=== PATIENT | female | born 1980 | race Caucasian/White ===

== ENCOUNTER 2016-07-06 14:09 | Emergency (ER) | payer BC ==
[2016-07-06 14:31] VITALS: BP 147/86
--- NOTE | 2016-07-06 14:39 | UC ---
Throat Pain/Nasal Jey HPI - HPI Summary HPI Summary: complaint of sore throat that started 2 days ago hurts to swallow has been having chills for2 days nasal congestion fo 1 day non productive cough occasionally intermittent headache not taking any medications for her symptoms - History of Current Complaint Chief Complaint: UCRespiratory Stated Complaint: SORE THROAT Time Seen by Provider: 07/06/16 14:11 Hx Obtained From: Patient Hx Last Menstrual Period: 06/12/16 - Allergies/Home Medications Allergies/Adverse Reactions: Allergies Allergy/AdvReac Type Severity Reaction Status Date / Time No Known Allergies Allergy Verified 07/06/16 14:22 Home Medications: Home Medications Drospirenone-Ethinyl Estradiol [Gianvi 3-0.02 mg] 1 tab PO DAILY 07/06/16 [ History Confirmed 07/06/16] PMH/Surg Hx/FS Hx/Imm Hx Previously Healthy: Yes - Surgical History Surgical History: Yes Surgery Procedure, Year, and Place: T&A. BREAST REDUCTION - Family History Known Family History: Negative: Cardiac Disease, Hypertension, Diabetes - Social History Occupation: Employed Full-time Lives: With Family Alcohol Use: Rare Substance Use Type: None Smoking Status (MU): Never Smoked Tobacco - Immunization History Most Recent Influenza Vaccination: FALL 2015 Review of Systems Constitutional: Chills, Fatigue Skin: Negative Eyes: Negative ENT: Sore Throat, Nasal Discharge Respiratory: Cough Cardiovascular: Negative Gastrointestinal: Negative Genitourinary: Negative Motor: Negative Neurovascular: Negative Musculoskeletal: Negative Neurological: Headache Psychological: Negative All Other Systems Reviewed And Are Negative: Yes Physical Exam Triage Information Reviewed: Yes Appearance: No Pain Distress, Well-Nourished, Obese Vital Signs: Initial Vital Signs Temp 98.8 F 07/06/16 14:23 Pulse 106 07/06/16 14:23 Resp 20 07/06/16 14:23 BP 147/86 07/06/16 14:23 Pulse Ox 100 07/06/16 14:23 Vital Signs Reviewed: Yes Eyes: Positive: Conjunctiva Clear ENT: Positive: Pharyngeal erythema, Nasal congestion, Nasal drainage, TMs normal Neck: Positive: No Lymphadenopathy Respiratory: Positive: Lungs clear, Normal breath sounds, No respiratory distress, No accessory muscle use Cardiovascular: Positive: No Murmur, Pulses Normal, Tachycardia Abdomen Description: Positive: Nontender, Soft Bowel Sounds: Positive: Present Musculoskeletal: Positive: No Edema Neurological: Positive: Alert Psychological Exam: Normal Skin Exam: Normal Throat Pain/Nasal Course/Dx - Differential Dx/Diagnosis Differential Diagnosis/HQI/PQRI: Pharyngitis, URI Provider Diagnoses: elevated blood pressure, pharyngitis Discharge - Discharge Plan Condition: Stable Disposition: HOME Patient Education Materials: Pharyngitis (ED) Referrals: Precious Moya MD [Medical Doctor] - Additional Instructions: Your blood pressure is elevated. Please contact your primary care provider for further evaluation. PHARYNGITIS (Sore Throat) What is Pharyngitis? The medical name for a sore throat is Pharyngitis. It is caused by an infection or irritation of your throat or tonsils. The infection can be caused by a virus or by bacteria. Not everyone with Pharyngitis needs antibiotics. Antibiotics will not make viral infections better, and they will not help a sore throat caused by irritation. Symptoms May Include: Sore throat Swelling of the glands in the neck Trouble or pain with swallowing Fever Headache Cough Extreme tiredness Ear pain Treatment Recommendations: Gargle every few hours with a solution of 1/4 teaspoon of salt dissolved in 1/ 2 cup of warm water. Drink plenty of warm beverages, like tea with lemon, (with or without honey) and soup. You may eat and drink cold foods and liquids like frozen yogurt, popsicles, and ice water if that makes your throat feel better. The goal is to keep you well hydrated. Use a "cool-mist" vaporizer or humidifier in the room where you spend most of your time. If you get a sore throat often, consider adding an electronic air filter and humidifier to your furnace system. Don't smoke. Do not eat spicy foods. Take medicine exactly as prescribed. If you do not think it is helping, call your healthcare provider. Do not increase how much or how often you take it without getting their OK first. Non-prescription anti-inflammatory medicine like ibuprofen (Motrin, Advil) or naproxen (Aleve) may help lessen the pain. You should not take these medicines if you have had bleeding in your stomach in the past. Acetaminophen ( Tylenol) is another choice of medicine that may help the pain. If pain medicine that makes you tired or sleepy or contains narcotics is prescribed, you should not drink, drive, or participate in any other activities that you need to be clear-headed for. Please keep all medicines out of the reach of children. Do not get in close contact with anyone you know who has a sore throat. Use throat lozenges (Cepostat, [place], etc.) or suck on hard candy for temporary relief of the pain with swallowing. (Do not give to children under age 5.) Call Your Doctor or Return Here IF: Your symptoms do not start to get better within 2 days or you become worse. You have a fever over 101.0 F orally. You cant swallow liquids or saliva. You are drooling. You start to have trouble breathing. You start to have a rash. You start to have a stiff neck. You start to have pain in your chest. You start to have any symptoms that are new or worry you.
== END 2016-07-06 15:11 | disposition home or self-care (01) ==
LOC: UCCORT 14:09
DX: J02.9 Acute pharyngitis, unspecified (principal); R03.0 Elevated blood-pressure reading, without diagnosis of hypertension; E66.9 Obesity, unspecified
CPT/HCPCS: 87651; 99201; G0463

== ENCOUNTER 2016-08-03 20:50 | Emergency (ER) | payer BC ==
[2016-08-03 21:12] VITALS: BP 141/75
[2016-08-03] MEDS ORDERED: Penicillin VK TAB* 250 MG PO ONE (21:28)
[2016-08-03] MEDS ORDERED: Acetaminop/Codeine 30 MG TAB* 1 TAB (300 MG/30 MG) PO ONE (21:28)
--- NOTE | 2016-08-03 21:35 | UC ---
Dental HPI - HPI Summary HPI Summary: Irritation under tongue on R side progressed to pain around tooth #29 starting 2 days ago. Woke at 4am this morning with significant pain. Doesn't have dental insurance, is trying to find someone who will take payment plan. - History of Current Complaint Chief Complaint: UCDentalProblem Stated Complaint: DENTAL Time Seen by Provider: 08/03/16 21:17 Hx Obtained From: Patient Hx Last Menstrual Period: 07/16/16 ?: No Onset/Duration: Gradual Onset, Lasting Days Severity: Moderate Aggravating: Chewing Alleviating: Nothing - Allergies/Home Medications Allergies/Adverse Reactions: Allergies Allergy/AdvReac Type Severity Reaction Status Date / Time No Known Allergies Allergy Verified 08/03/16 21:11 Home Medications: Home Medications Ibuprofen TAB* [Motrin TAB* 600 MG] 600 mg PO Q8H PRN 08/03/16 [History Confirmed 08/03/16] PMH/Surg Hx/FS Hx/Imm Hx - Surgical History Surgical History: Yes Surgery Procedure, Year, and Place: T&A. BREAST REDUCTION - Family History Known Family History: Negative: Cardiac Disease, Hypertension, Diabetes - Social History Occupation: Employed Full-time Lives: With Family Alcohol Use: Rare Substance Use Type: None Smoking Status (MU): Never Smoked Tobacco - Immunization History Most Recent Influenza Vaccination: FALL 2015 Review of Systems Constitutional: Negative Skin: Negative Eyes: Negative ENT: Dental Pain Respiratory: Negative Cardiovascular: Negative Gastrointestinal: Negative Genitourinary: Negative Motor: Negative Neurovascular: Negative Musculoskeletal: Negative Neurological: Negative Psychological: Negative All Other Systems Reviewed And Are Negative: Yes Physical Exam Triage Information Reviewed: Yes Appearance: Well-Appearing, No Pain Distress, Obese Vital Signs: Initial Vital Signs Temp 98.7 F 08/03/16 21:07 Pulse 93 08/03/16 21:07 Resp 14 08/03/16 21:07 BP 141/75 08/03/16 21:07 Pulse Ox 100 08/03/16 21:07 Vital Signs Reviewed: Yes Eye Exam: Normal Eyes: Positive: Conjunctiva Clear ENT Exam: Normal ENT: Positive: Normal ENT inspection, Hearing grossly normal, Pharynx normal, TMs normal. Negative: Tonsillar swelling, Tonsillar exudate Dental: Positive: Percussion Tenderness @ - peiodontal tissue around #29, Gross Decay/Caries @ - poor hygeine, marked plaque build-up Neck exam: Normal Neck: Positive: Supple, Nontender Respiratory Exam: Normal Respiratory: Positive: Chest non-tender, Lungs clear, Normal breath sounds, No respiratory distress, No accessory muscle use Cardiovascular Exam: Normal Cardiovascular: Positive: RRR, No Murmur Musculoskeletal Exam: Normal Neurological Exam: Normal Neurological: Positive: Alert Psychological Exam: Normal Skin Exam: Normal Dental Complaint Course/Dx - Differential Dx/Diagnosis Provider Diagnoses: periodontal infection #29 Discharge - Discharge Plan Condition: Stable Disposition: HOME Prescriptions: Penicillin VK TAB 500 MG(NF) [Penicillin VK 500 mg Tab(NF)] 500 mg PO QID #28 tab Patient Education Materials: Toothache (ED) Referrals: Non Staff,Doctor [Primary Care Provider] - Additional Instructions: As we discussed, your pain appears to be coming from your gum tissue rather than your teeth. Regardless, you certainly should see a dentist as soon as possible.
== END 2016-08-03 21:55 | disposition home or self-care (01) ==
LOC: UCCORT 20:50
DX: K05.20 Aggressive periodontitis, unspecified (principal); E66.9 Obesity, unspecified
CPT/HCPCS: 99212; A9270-GY; G0463

== ENCOUNTER 2017-03-25 18:01 | Emergency (ER) | payer BC ==
[2017-03-25 18:27] VITALS: BP 141/82
--- NOTE | 2017-03-25 18:50 | UC ---
Throat Pain/Nasal Jey HPI - HPI Summary HPI Summary: TWO MONTHS OF WORSENING COUGH AND WORSENING SINUS CONGESTION. - History of Current Complaint Chief Complaint: UCRespiratory Stated Complaint: COUGH Time Seen by Provider: 03/25/17 18:30 Hx Obtained From: Patient, Family/Director Employee Communications Hx Last Menstrual Period: 03/20/17 Onset/Duration: Gradual Onset, Lasting Weeks Severity: Moderate Cough: Productive Associated Signs & Symptoms: Positive: Hoarseness, Sinus Discomfort, Nasal Discharge - Epiglottits Risk Factors Epiglottis Risk Factors: Negative - Allergies/Home Medications Allergies/Adverse Reactions: Allergies Allergy/AdvReac Type Severity Reaction Status Date / Time No Known Allergies Allergy Verified 03/25/17 18:27 PMH/Surg Hx/FS Hx/Imm Hx Previously Healthy: Yes - Surgical History Surgical History: Yes Surgery Procedure, Year, and Place: T&A. BREAST REDUCTION - Family History Known Family History: Negative: Cardiac Disease, Hypertension, Diabetes - Social History Occupation: Employed Full-time Lives: With Family Alcohol Use: Rare Substance Use Type: None Smoking Status (MU): Never Smoked Tobacco - Immunization History Most Recent Influenza Vaccination: FALL 2015 Review of Systems Constitutional: Negative Skin: Negative Eyes: Negative ENT: Nasal Discharge, Sinus Congestion, Sinus Pain/Tenderness Respiratory: Cough Cardiovascular: Negative Gastrointestinal: Negative Genitourinary: Negative Motor: Negative Neurovascular: Negative Musculoskeletal: Negative Neurological: Negative Psychological: Negative Is Patient Immunocompromised?: No All Other Systems Reviewed And Are Negative: Yes Physical Exam Triage Information Reviewed: Yes Appearance: No Pain Distress, Well-Nourished, Ill-Appearing - MILDLY Vital Signs: Initial Vital Signs Temp 98.3 F 03/25/17 18:20 Pulse 107 03/25/17 18:20 Resp 14 03/25/17 18:20 BP 141/82 03/25/17 18:20 Pulse Ox 100 03/25/17 18:20 Vital Signs Reviewed: Yes Eye Exam: Normal ENT Exam: Normal ENT: Positive: Pharynx normal, Nasal congestion, TM bulging, TM dull Dental Exam: Normal Neck exam: Normal Neck: Positive: Supple, Nontender, No Lymphadenopathy Respiratory Exam: Other - COUGH Respiratory: Positive: Chest non-tender, Lungs clear, Normal breath sounds, No respiratory distress, No accessory muscle use Cardiovascular Exam: Normal Cardiovascular: Positive: RRR, No Murmur, Pulses Normal, Brisk Capillary Refill Abdominal Exam: Normal Musculoskeletal Exam: Normal Musculoskeletal: Positive: Strength Intact, ROM Intact, No Edema Neurological Exam: Normal Psychological Exam: Normal Skin Exam: Normal Throat Pain/Nasal Course/Dx - Differential Dx/Diagnosis Differential Diagnosis/HQI/PQRI: Sinusitis, Tonsillitis, URI Provider Diagnoses: SINUSITIS; BRONCHITIS Discharge - Discharge Plan Condition: Stable Disposition: HOME Prescriptions: Amoxicillin/Clavulanate TAB* [Augmentin TAB 875*] 875 mg PO BID #20 tab Benzonatate CAP* [Tessalon 100 MG CAP*] 100 mg PO TID PRN #15 cap PRN Reason: Cough Patient Education Materials: Sinusitis (ED), Acute Bronchitis (ED) Referrals: Non Staff,Doctor [Primary Care Provider] -
== END 2017-03-25 18:46 | disposition home or self-care (01) ==
LOC: UCCORT 18:01
DX: J32.9 Chronic sinusitis, unspecified (principal); J40 Bronchitis, not specified as acute or chronic
CPT/HCPCS: 99212; G0463

== ENCOUNTER 2018-10-10 11:13 | Emergency (ER) | payer BC ==
[2018-10-10 11:43] VITALS: BP 143/87
--- NOTE | 2018-10-10 11:59 | UC ---
Skin Complaint HPI - HPI Summary HPI Summary: tick bite left lower leg x 2 days her removed the tick for her, tick was very small, not sure how long it has been on her no fever, no chills, no joint pain , no rash - History of Current Complaint Chief Complaint: UCSkin Time Seen by Provider: 10/10/18 11:47 Stated Complaint: TICK BITE Hx Obtained From: Patient Hx Last Menstrual Period: 10/03/18 Onset/Duration: Gradual Onset, Lasting Days - 2, Still Present Timing: Constant Onset Severity: Mild Current Severity: Mild Pain Intensity: 0 Location: Discrete - left lower leg Character: Redness Aggravating Factor(s): Nothing Alleviating Factor(s): Nothing Associated Signs & Symptoms: Positive: Negative. Negative: Nausea, Vomiting, Numbness, Fever, Chills, Cough, Wheezing, Tenderness Related History: Insect Bite/Sting - Allergy/Home Medications Allergies/Adverse Reactions: Allergies Allergy/AdvReac Type Severity Reaction Status Date / Time No Known Allergies Allergy Verified 10/10/18 11:43 Home Medications: Home Medications Ibuprofen 600 mg PO ONCE PRN 10/10/18 [History Confirmed 10/10/18] PMH/Surg Hx/FS Hx/Imm Hx Previously Healthy: Yes - Surgical History Surgical History: Yes Surgery Procedure, Year, and Place: T&A. BREAST REDUCTION - Family History Known Family History: Negative: Cardiac Disease, Hypertension, Diabetes - Social History Alcohol Use: Rare Substance Use Type: None Smoking Status (MU): Never Smoked Tobacco - Immunization History Most Recent Influenza Vaccination: FALL 2015 Review of Systems All Other Systems Reviewed And Are Negative: Yes Constitutional: Positive: Negative Eyes: Positive: Negative ENT: Positive: Negative Respiratory: Positive: Negative Cardiovascular: Positive: Negative Is Patient Immunocompromised?: No Physical Exam Triage Information Reviewed: Yes Appearance: Well-Appearing, No Pain Distress, Well-Nourished Vital Signs: Initial Vital Signs Temp 97.1 F 10/10/18 11:40 Pulse 85 10/10/18 11:40 Resp 18 10/10/18 11:40 BP 143/87 10/10/18 11:40 Pulse Ox 98 10/10/18 11:40 Vital Signs Reviewed: Yes Eye Exam: Normal Eyes: Positive: Conjunctiva Clear ENT: Positive: Normal ENT inspection, Hearing grossly normal, Pharynx normal Neck: Positive: Supple, Nontender, No Lymphadenopathy Respiratory: Positive: Chest non-tender, Lungs clear, Normal breath sounds Cardiovascular: Positive: RRR, No Murmur, Pulses Normal Musculoskeletal Exam: Normal Skin: Positive: Other - tick site : left lower leg, mild erythema, no swelling, no tenderness Course/Dx - Diagnoses Provider Diagnosis: Tick bite of left lower leg Discharge - Sign-Out/Discharge Documenting (check all that apply): Patient Departure All imaging exams completed and their final reports reviewed: No Studies - Discharge Plan Condition: Stable Disposition: HOME Prescriptions: DOXYcycline CAP(*) [DOXYcycline 100MG CAP(*)] 200 mg PO DAILY #2 cap Patient Education Materials: Tick Bite (ED) Referrals: Precious Moya MD [Primary Care Provider] - If Needed - Billing Disposition and Condition Condition: STABLE Disposition: Home
== END 2018-10-10 12:03 | disposition home or self-care (01) ==
LOC: UCEAST 11:13
DX: T63.481A Toxic effect of venom of other arthropod, accidental (unintentional), initial encounter (principal); Y92.9 Unspecified place or not applicable
CPT/HCPCS: 99212; G0463